=== PATIENT | female | born 1995 | race Two or more races ===

== ENCOUNTER 2022-01-23 10:51 | Emergency (ER) | payer OTHER ==
[2022-01-23 11:03] VITALS: PULSE 106; BMI 28.5
[2022-01-23] MEDS ORDERED: ACETAMINOPHEN 325 MG TABLET (FP) PO ONE (11:26)
[2022-01-23] MEDS ORDERED: ACETAMINOPHEN 325 MG TABLET (FP) ONE (11:29)
[2022-01-23 13:10] VITALS: BP 121/66
[2022-01-23 13:16] VITALS: TEMP 98.1
== END 2022-01-23 15:50 | disposition home or self-care (01) ==
LOC: JER 10:51
DX: O71.89 Other specified obstetric trauma (principal); M79.601 Pain in right arm; W08.XXXA Fall from other furniture, initial encounter; Z3A.22 22 weeks gestation of pregnancy
CPT/HCPCS: 73030-TC-RT-FY; 73060-TC-RT-FY; 73070-TC-RT-FY; 73090-TC-RT-FY; 99285-25